=== PATIENT | female | born 1990 | race Two or more races ===

== ENCOUNTER 2016-07-24 16:26 | Emergency (ER) | payer MEDICAID ==
[~2016-07-24] VITALS: Ht 162.6 cm; Wt 86.0 kg
[2016-07-24] MEDS ORDERED: KETOROLAC 60MG/2ML VIAL IM ONE (19:45)
[2016-07-24] MEDS ORDERED: ONDANSETRON HCL 4MG TABLET PO ONE (19:45)
[2016-07-24 20:02] LABS: HEMATOCRIT. 39.2 % (36.0-48.0); HEMOGLOBIN. 12.9 g/dL (12.0-16.0); MEAN CORPUSCULAR HEMOGLOBIN 26.9 pg (28.0-32.0); MEAN CORPUSCULAR HGB CONC 32.9 g/dL (31.0-37.0); MEAN CORPUSCULAR VOLUME 81.7 fL (81.0-99.0); MEAN PLATELET VOLUME 8.1 fl (7.4-10.4); PLATELET 324 x1000/uL (130-400); RED BLOOD CELL COUNT 4.79 mill/uL (4.2-5.4); RED CELL DISTRIBUTION WIDTH 14.7 % (11.6-14.6)
[2016-07-24 20:04] LABS: DIFFERENTIAL COMMENT 1
[2016-07-24 20:07] LABS: CHLORIDE 105 mEq/L (98-107); INDEX HEMOLYSI 1 (1-3); INDEX ICTERIC 1 (1-4); INDEX LIPEMIC 1 (1-3)
[2016-07-24 20:12] LABS: ANION GAP 12; CALCIUM 9.1 mg/dL (8.5-10.1); CARBON DIOXIDE 27 mEq/L (21-32); UREA NITROGEN BLOOD 10 mg/dL (7-21); eGFR > 60 mL/min (>60)
[2016-07-24 20:14] LABS: HCG SCREEN NEGATIVE
[2016-07-24 20:24] LABS: PLATELET ESTIMATE NORMAL
[2016-07-24 20:25] LABS: ANISOCYTOSIS 1+; PLATELET SATELLITISM FEW
[2016-07-24] MEDS ORDERED: SODIUM CHLORIDE 0.9% 1,000 ML IV ONE (20:45)
[2016-07-24 21:35] VITALS: BP 133/70
== END 2016-07-24 21:43 | disposition left against medical advice (07) ==
LOC: ER 20:12
DX: R10.31 Right lower quadrant pain (principal); R11.2 Nausea with vomiting, unspecified; Z90.49 Acquired absence of other specified parts of digestive tract
CPT/HCPCS: 36415; 80048; 84703; 85025; 96372; 99284; J1885; J7030; Q0162; Z7610